=== PATIENT | female | born 1935 | race Caucasian/White ===

== ENCOUNTER 2017-06-30 10:49 | Inpatient (IN) | payer OTHER ==
[~2017-06-30] VITALS: Ht 165.1 cm; Wt 49.2 kg
[~2017-06-30 10:49] MED LIST: ARIMIDEX1 MG PO; ASPIR 8181 M1 PO; CENTRUM SILVER1 EAC3 PO; DECADRON2 MG PO; DECADRON4 MG PO; DEXAMETHASONE2 MG PO; HYDROCODON-ACE1 EAC7 PO; LO-DOSE ASPIRIN81 M1 PO; LOVENOX30 MG/0.3 SC; MECLIZINE HCL12.5 M1 PO; TYLENOL EXTRA500 MG PO; VITAMIN D2000 UNIT PO; XARELTO20 MG PO
[2017-06-30 11:38] LABS: BASOPHIL (%) 0.2 % (0-1); EOSINOPHIL (%) 0.9 % (0-5); EOSINOPHIL COUNT 0.1 K/uL (0-0.3); HEMATOCRIT 40.7 % (36.0-46.0); HEMOGLOBIN 13.1 G/DL (11.9-15.5); IMMATURE GRANULOCYTE (%) 0.4 % (0.0-0.7); LYMPHOCYTE (%) 15.7 % (15-42); LYMPHOCYTE COUNT 0.9 K/uL (1.0-2.8); MCH 30.8 PG (29.0-34.0); MCHC 32.2 G/DL (30.0-36.0); MCV 95.8 FL (83-99); MONOCYTE (%) 9.3 % (3-12); MONOCYTE COUNT 0.5 K/uL (0-0.8); NEUTROPHIL (%) 73.5 % (45-76); NEUTROPHIL COUNT 4.1 K/uL (1.8-6.4); PLATELET COUNT 228 K/uL (156-360); RBC DIS.WIDTH-CV 12.5 % (11.8-14.6); RBC DIS.WIDTH-SD 44.5 % (39-53); RED BLOOD COUNT 4.25 M/uL (3.80-5.20); WHITE BLOOD COUNT 5.6 K/uL (4.1-10.2)
[2017-06-30 11:43] LABS: INTER. NORMALIZED RATIO 1.7
[2017-06-30 11:46] LABS: PTT 32.2 SEC (25-37)
[2017-06-30 11:48] LABS: ALBUMIN 3.8 g/dL (3.2-4.8); CHLORIDE 107 mEq/L (99-109); POTASSIUM 4.7 mEq/L (3.7-5.4); SODIUM 142 mEq/L (136-147)
[2017-06-30 11:51] LABS: GLUCOSE 104 mg/dL (70-99); TOTAL PROTEIN 6.2 g/dL (6.4-8.3)
[2017-06-30 11:53] LABS: TOTAL BILIRUBIN 0.7 mg/dL (0.0-1.0)
[2017-06-30 11:54] LABS: ALKALINE PHOSPHATASE 55 IU/L (3-129); CREATININE 0.8 mg/dL (0.6-1.3); GFR ESTIMATE (CALCULATED) > 59 mL/min/
[2017-06-30 11:56] LABS: AST (GOT) 22 IU/L (2-34); UREA NITROGEN (BUN) 19 mg/dL (9-23)
[2017-06-30 11:57] LABS: ALT (GPT) 17 IU/L (3-49); CREATINE KINASE 36 IU/L (1-294); TOTAL CK 36 IU/L (1-294)
[2017-06-30 12:03] LABS: CK-MB 3.5 ng/mL (0.0-4.9); CKMB RELATIVE INDEX 9.7 (0.0-3.9); TROP-I INTERPRETATION INDETERMINATE; TROPONIN-I 0.44 ng/mL (0.0-0.30)
[2017-06-30 15:40] LABS: TROP-I INTERPRETATION POSITIVE
[2017-06-30 15:42] LABS: TROPONIN-I 1.92 ng/mL (0.0-0.30)
[2017-06-30 18:15] LABS: APPEARANCE CLOUDY ((CLEAR)); BILIRUBIN NEGATIVE; BLOOD NEGATIVE; COLOR AMBER ((YELLOW)); GLUCOSE (STRIP) NEGATIVE; KETONES 20; LEUKOCYTES SMALL; NITRITE NEGATIVE; PROTEIN (STRIP) 30; UROBILINOGEN 0.2 MG/DL (0.2-1.0)
[2017-06-30 18:22] LABS: BACTERIA NONE SEEN /HPF; EPITHELIAL CELLS RARE /HPF; HYALINE CASTS 0-5 /LPF; MUCUS 3+ /LPF; UCUL ADDED? YES; WHITE BLOOD CELLS 40-50 /HPF (0-5)
[2017-06-30 21:41] LABS: TROP-I INTERPRETATION POSITIVE
[2017-06-30 21:43] LABS: TROPONIN-I 2.69 ng/mL (0.0-0.30)
[2017-06-30 23:36] VITALS: BP 117/56
[2017-07-01 03:44] VITALS: BP 92/50
[2017-07-01 04:03] LABS: BASOPHIL (%) 0.2 % (0-1); EOSINOPHIL (%) 0.4 % (0-5); HEMATOCRIT 33.2 % (36.0-46.0); IMMATURE GRANULOCYTE (%) 0.6 % (0.0-0.7); LYMPHOCYTE (%) 22.2 % (15-42); LYMPHOCYTE COUNT 1.1 K/uL (1.0-2.8); MCH 31.5 PG (29.0-34.0); MCHC 33.1 G/DL (30.0-36.0); MCV 95.1 FL (83-99); MONOCYTE COUNT 0.4 K/uL (0-0.8); NEUTROPHIL (%) 68.6 % (45-76); NEUTROPHIL COUNT 3.3 K/uL (1.8-6.4); PLATELET COUNT 188 K/uL (156-360); RBC DIS.WIDTH-CV 12.9 % (11.8-14.6); RBC DIS.WIDTH-SD 44.5 % (39-53); RED BLOOD COUNT 3.49 M/uL (3.80-5.20); WHITE BLOOD COUNT 4.7 K/uL (4.1-10.2)
[2017-07-01 04:06] LABS: CHLORIDE 114 mEq/L (99-109); POTASSIUM 4.4 mEq/L (3.7-5.4)
[2017-07-01 04:07] LABS: SODIUM 142 mEq/L (136-147)
[2017-07-01 04:08] LABS: GLUCOSE 85 mg/dL (70-99)
[2017-07-01 04:12] LABS: CREATININE 0.7 mg/dL (0.6-1.3); GFR ESTIMATE (CALCULATED) > 59 mL/min/
[2017-07-01 04:13] LABS: UREA NITROGEN (BUN) 16 mg/dL (9-23)
[2017-07-01 04:19] LABS: TROP-I INTERPRETATION POSITIVE
[2017-07-01 04:39] LABS: TROPONIN-I 2.52 ng/mL (0.0-0.30)
[2017-07-01 06:50] VITALS: BP 100/57
[2017-07-01 10:24] LABS: TROP-I INTERPRETATION POSITIVE; TROPONIN-I 1.85 ng/mL (0.0-0.30)
[2017-07-01 11:15] VITALS: BP 113/59
[2017-07-01 15:30] VITALS: BP 128/59
[2017-07-01 17:42] VITALS: BP 124/61
[2017-07-02 00:20] VITALS: BP 108/60
[2017-07-02 04:12] VITALS: BP 127/60
[2017-07-02 06:22] LABS: BASOPHIL (%) 0.1 % (0-1); EOSINOPHIL (%) 0 % (0-5); HEMATOCRIT 37.5 % (36.0-46.0); HEMOGLOBIN 12.2 G/DL (11.9-15.5); IMMATURE GRANULOCYTE (%) 0.5 % (0.0-0.7); LYMPHOCYTE (%) 7.2 % (15-42); LYMPHOCYTE COUNT 0.7 K/uL (1.0-2.8); MCH 30.6 PG (29.0-34.0); MCHC 32.5 G/DL (30.0-36.0); MONOCYTE (%) 7.9 % (3-12); MONOCYTE COUNT 0.8 K/uL (0-0.8); NEUTROPHIL (%) 84.3 % (45-76); NEUTROPHIL COUNT 8.2 K/uL (1.8-6.4); RBC DIS.WIDTH-CV 12.4 % (11.8-14.6); RBC DIS.WIDTH-SD 43.3 % (39-53); RED BLOOD COUNT 3.99 M/uL (3.80-5.20); WHITE BLOOD COUNT 9.7 K/uL (4.1-10.2)
[2017-07-02 06:40] LABS: ALBUMIN 3.1 G/DL (3.2-4.8); ALKALINE PHOSPHATASE 50 IU/L (3-129); ALT (GPT) 35 IU/L (3-49); AST (GOT) 43 IU/L (2-34); CHLORIDE 111 MEQ/L (99-109); CREATININE 0.6 MG/DL (0.6-1.3); GFR ESTIMATE (CALCULATED) > 59 mL/min/; GLUCOSE 98 mg/dL (70-99); POTASSIUM 3.7 MEQ/L (3.7-5.4); SODIUM 140 MEQ/L (136-147); TOTAL BILIRUBIN 0.9 MG/DL (0.0-1.0); UREA NITROGEN (BUN) 10 mg/dL (9-23)
[2017-07-02 07:38] VITALS: BP 117/56
[2017-07-02 07:38] LABS: PLATELET COUNT 194 K/uL (156-360)
[2017-07-02 12:17] VITALS: BP 122/60
[2017-07-02 16:41] VITALS: BP 126/60
[2017-07-03 00:29] VITALS: BP 116/60
[2017-07-03 03:36] VITALS: BP 119/60
[2017-07-03 06:37] LABS: CHLORIDE 110 MEQ/L (99-109); CREATININE 0.6 MG/DL (0.6-1.3); GFR ESTIMATE (CALCULATED) > 59 mL/min/; GLUCOSE 98 mg/dL (70-99); POTASSIUM 3.6 MEQ/L (3.7-5.4); SODIUM 143 MEQ/L (136-147); UREA NITROGEN (BUN) 10 mg/dL (9-23)
[2017-07-03 07:05] LABS: BASOPHIL (%) 0.1 % (0-1); EOSINOPHIL (%) 0.7 % (0-5); EOSINOPHIL COUNT 0.1 K/uL (0-0.3); HEMATOCRIT 34.8 % (36.0-46.0); HEMOGLOBIN 11.9 G/DL (11.9-15.5); IMMATURE GRANULOCYTE (%) 0.3 % (0.0-0.7); LYMPHOCYTE COUNT 0.7 K/uL (1.0-2.8); MCH 31.8 PG (29.0-34.0); MCHC 34.2 G/DL (30.0-36.0); MONOCYTE COUNT 0.6 K/uL (0-0.8); NEUTROPHIL (%) 80.9 % (45-76); NEUTROPHIL COUNT 5.7 K/uL (1.8-6.4); PLATELET COUNT 205 K/uL (156-360); RBC DIS.WIDTH-CV 12.9 % (11.8-14.6); RBC DIS.WIDTH-SD 43.8 % (39-53); RED BLOOD COUNT 3.74 M/uL (3.80-5.20)
[2017-07-03 08:47] VITALS: BP 113/67
[2017-07-03 12:09] VITALS: BP 105/56
[2017-07-03 15:57] VITALS: BP 115/51
[2017-07-03 19:51] VITALS: BP 111/55
[2017-07-04 00:24] VITALS: BP 101/57
[2017-07-04 04:29] VITALS: BP 118/54
[2017-07-04 06:35] LABS: CHLORIDE 111 MEQ/L (99-109); CREATININE 0.6 MG/DL (0.6-1.3); GFR ESTIMATE (CALCULATED) > 59 mL/min/; GLUCOSE 93 mg/dL (70-99); POTASSIUM 4.4 MEQ/L (3.7-5.4); SODIUM 144 MEQ/L (136-147); UREA NITROGEN (BUN) 12 mg/dL (9-23)
[2017-07-04 09:10] LABS: BASOPHIL (%) 0.2 % (0-1); EOSINOPHIL COUNT 0.2 K/uL (0-0.3); HEMATOCRIT 33.8 % (36.0-46.0); HEMOGLOBIN 11.1 G/DL (11.9-15.5); IMMATURE GRANULOCYTE (%) 0.4 % (0.0-0.7); LYMPHOCYTE (%) 17.8 % (15-42); LYMPHOCYTE COUNT 0.9 K/uL (1.0-2.8); MCH 31.1 PG (29.0-34.0); MCHC 32.8 G/DL (30.0-36.0); MCV 94.7 FL (83-99); MONOCYTE (%) 8.5 % (3-12); MONOCYTE COUNT 0.4 K/uL (0-0.8); NEUTROPHIL (%) 70.1 % (45-76); NEUTROPHIL COUNT 3.5 K/uL (1.8-6.4); PLATELET COUNT 234 K/uL (156-360); RBC DIS.WIDTH-SD 45.2 % (39-53); RED BLOOD COUNT 3.57 M/uL (3.80-5.20); WHITE BLOOD COUNT 4.9 K/uL (4.1-10.2)
[2017-07-04 11:44] VITALS: BP 130/61
[2017-07-04 16:25] VITALS: BP 91/48
[2017-07-04 19:26] VITALS: BP 93/54
[2017-07-04 23:08] VITALS: BP 108/57
[2017-07-05 03:43] VITALS: BP 116/59
[2017-07-05 08:20] VITALS: BP 119/57
[2017-07-05 11:42] VITALS: BP 104/53
[2017-07-05 17:09] VITALS: BP 114/51
[2017-07-05 23:18] VITALS: BP 109/56
[2017-07-06 03:15] VITALS: BP 119/58
[2017-07-06 08:55] VITALS: BP 102/58
[2017-07-06 11:33] VITALS: BP 99/44
[2017-07-06 16:31] VITALS: BP 110/55
[2017-07-06 19:19] VITALS: BP 119/61
[2017-07-06 23:02] VITALS: BP 108/56
[2017-07-07 03:01] VITALS: BP 110/59
[2017-07-07 07:22] VITALS: BP 112/52
[2017-07-07 15:17] VITALS: BP 91/52
[2017-07-07] MEDS ORDERED: PRAVASTATIN SOD40 MG PO (15:44)
[2017-07-07] MEDS ORDERED: ASPIR-LOW81 MG PO (15:44)
== END 2017-07-07 18:33 | disposition home health service (06) | DRG 280 ==
LOC: EME 10:49 → EDOF 16:22 → 5EAST 16:22 → ENRESERV 16:23 → 5EAST 22:59
PROVIDERS: Emergency Medicine; Hospitalist
DX: I95.9 Hypotension, unspecified (principal); I21.4 Non-ST elevation (NSTEMI) myocardial infarction; G93.6 Cerebral edema; C79.31 Secondary malignant neoplasm of brain; Z68.1 Body mass index [BMI] 19.9 or less, adult; N39.0 Urinary tract infection, site not specified; R64 Cachexia; R63.6 Underweight; R41.82 Altered mental status, unspecified; R32 Unspecified urinary incontinence; R82.99 Other abnormal findings in urine; E86.9 Volume depletion, unspecified; F03.90 Unspecified dementia, unspecified severity, without behavioral disturbance, psychotic disturbance, mood disturbance, and anxiety; G43.909 Migraine, unspecified, not intractable, without status migrainosus; I10 Essential (primary) hypertension; I70.0 Atherosclerosis of aorta; I35.8 Other nonrheumatic aortic valve disorders; Z85.3 Personal history of malignant neoplasm of breast; Z79.82 Long term (current) use of aspirin; R94.31 Abnormal electrocardiogram [ECG] [EKG]; Z60.2 Problems related to living alone; Z79.01 Long term (current) use of anticoagulants; Z92.21 Personal history of antineoplastic chemotherapy; Z92.3 Personal history of irradiation; Z86.718 Personal history of other venous thrombosis and embolism; Z80.42 Family history of malignant neoplasm of prostate; Z82.49 Family history of ischemic heart disease and other diseases of the circulatory system
CPT/HCPCS: 70450; 71045; 80048; 80053; 81003; 82550; 82553; 82607; 83605; 83735; 84484; 85025; 85610; 85730; 87086; 87493; 93005; 94010; 97530 GO; 99202; 99281; 99285; J0696; J1644; J7030

== ENCOUNTER 2017-10-12 12:35 | Inpatient (IN) | payer OTHER ==
[~2017-10-12] VITALS: Ht 165.1 cm; Wt 46.7 kg
[~2017-10-12 12:35] MED LIST changes: +ASPIR-LOW81 MG PO; +PRAVASTATIN SOD40 MG PO
[2017-10-12 14:42] LABS: HEMATOCRIT 42.1 % (36.0-46.0); HEMOGLOBIN 13.9 G/DL (11.9-15.5); MCH 31.3 PG (29.0-34.0); MCV 94.8 FL (83-99); PLATELET COUNT 318 K/uL (156-360); RBC DIS.WIDTH-SD 48.7 % (39-53); RED BLOOD COUNT 4.44 M/uL (3.80-5.20); WHITE BLOOD COUNT 15.1 K/uL (4.1-10.2)
[2017-10-12 14:48] LABS: CHLORIDE 101 mEq/L (99-109); POTASSIUM 4.5 mEq/L (3.7-5.4); SODIUM 139 mEq/L (136-147)
[2017-10-12 14:50] LABS: GLUCOSE 150 mg/dL (70-99)
[2017-10-12 14:54] LABS: GFR ESTIMATE (CALCULATED) 56 mL/min/; UREA NITROGEN (BUN) 31 mg/dL (9-23)
[2017-10-12 16:31] LABS: APPEARANCE CLEAR ((CLEAR)); BILIRUBIN NEGATIVE; BLOOD NEGATIVE; COLOR YELLOW ((YELLOW)); GLUCOSE (STRIP) NEGATIVE; KETONES NEGATIVE; LEUKOCYTES NEGATIVE; NITRITE NEGATIVE; PROTEIN (STRIP) NEGATIVE; SPECIFIC GRAVITY 1.025 (1.000-1.030)
[2017-10-12] MEDS ORDERED: PERCOCET 5/31 TABLET PO (17:57)
[2017-10-12] MEDS ORDERED: ADULT ASPIRIN81 MG PO (17:57)
[2017-10-12] MEDS ORDERED: DEXAMETHASONE4 MG PO (17:57)
[2017-10-12] MEDS ORDERED: ARICEPT10 MG PO (17:57)
[2017-10-13] VITALS (7 sets, daily range): BP systolic 114–159; BP diastolic 56–77
[2017-10-13 05:33] LABS: HEMATOCRIT 39.6 % (36.0-46.0); HEMOGLOBIN 12.7 G/DL (11.9-15.5); MCH 30.5 PG (29.0-34.0); MCHC 32.1 G/DL (30.0-36.0); PLATELET COUNT 315 K/uL (156-360); RBC DIS.WIDTH-CV 13.9 % (11.8-14.6); RBC DIS.WIDTH-SD 48.8 % (39-53); RED BLOOD COUNT 4.17 M/uL (3.80-5.20); WHITE BLOOD COUNT 14.1 K/uL (4.1-10.2)
[2017-10-13 05:55] LABS: CHLORIDE 104 MEQ/L (99-109); CREATININE 0.8 MG/DL (0.6-1.3); GFR ESTIMATE (CALCULATED) > 59 mL/min/; POTASSIUM 4.7 MEQ/L (3.7-5.4); SODIUM 136 MEQ/L (136-147); UREA NITROGEN (BUN) 27 mg/dL (9-23)
[2017-10-13 06:08] LABS: GLUCOSE 108 mg/dL (70-99)
[2017-10-13 09:55] LABS: HEMOGLOBIN A1c (GLYCOHEMOGLOB) 5.2 % (Below 5.7)
[2017-10-14 04:26] VITALS: BP 167/72
[2017-10-14 06:25] LABS: HEMATOCRIT 41.3 % (36.0-46.0); HEMOGLOBIN 13.2 G/DL (11.9-15.5); MCH 30.2 PG (29.0-34.0); MCV 94.5 FL (83-99); PLATELET COUNT 316 K/uL (156-360); RBC DIS.WIDTH-CV 13.8 % (11.8-14.6); RBC DIS.WIDTH-SD 48.1 % (39-53); RED BLOOD COUNT 4.37 M/uL (3.80-5.20)
[2017-10-14 08:16] VITALS: BP 133/60
[2017-10-14 11:01] VITALS: BP 123/57
[2017-10-14] MEDS ORDERED: LEVETIRACETAM500 MG PO (12:03)
[2017-10-14] MEDS ORDERED: DEXAMETHASONE4 MG PO (12:03)
[2017-10-14 16:25] VITALS: BP 117/56
== END 2017-10-14 17:10 | disposition home health service (06) | DRG 54 ==
LOC: EME 12:35 → 3EAST 16:34 → EDOF 16:34 → ENRESERV 16:43 → 3EAST 23:15
PROVIDERS: Hospitalist; Nurse Practitioner Family
DX: C79.31 Secondary malignant neoplasm of brain (principal); R56.9 Unspecified convulsions; G93.6 Cerebral edema; N17.9 Acute kidney failure, unspecified; E16.0 Drug-induced hypoglycemia without coma; T38.0X5A Adverse effect of glucocorticoids and synthetic analogues, initial encounter; D72.829 Elevated white blood cell count, unspecified; R35.8 Other polyuria; F03.90 Unspecified dementia, unspecified severity, without behavioral disturbance, psychotic disturbance, mood disturbance, and anxiety; I25.10 Atherosclerotic heart disease of native coronary artery without angina pectoris; I25.2 Old myocardial infarction; Z79.82 Long term (current) use of aspirin; Z85.3 Personal history of malignant neoplasm of breast; Z92.21 Personal history of antineoplastic chemotherapy; Z92.3 Personal history of irradiation
CPT/HCPCS: 70450; 70553; 71046; 80048; 81003; 82948; 83036; 85027; 93005; 99281; 99285; J1100; J1644; J1953; J7030; J7050